=== PATIENT | male | born 1990 | race Caucasian/White ===

== ENCOUNTER → 2018-12-23 | Emergency (ER) | payer OTHER ==
[~2018-12-23] VITALS: Ht 175.3 cm; Wt 85.7 kg
== END | disposition home or self-care (01) ==
LOC: ER 20:01 → EDBD 20:15 → ER 20:15
DX: R00.2 Palpitations (principal); R06.02 Shortness of breath; F41.1 Generalized anxiety disorder

== ENCOUNTER 2018-12-24 22:50 | Emergency (ER) | payer OTHER ==
[~2018-12-24] VITALS: Ht 175.3 cm; Wt 85.7 kg
== END 2018-12-25 06:15 | disposition home or self-care (01) ==
LOC: ER 22:50 → EDBD 23:14 → ER 12-25 06:15
DX: R42 Dizziness and giddiness (principal); F06.4 Anxiety disorder due to known physiological condition; F41.0 Panic disorder [episodic paroxysmal anxiety]